=== PATIENT | female | born 1965 | race Caucasian/White ===

== ENCOUNTER → 2017-01-11 | Outpatient (CLI) | payer OTHER ==
[~2017-01-11] MED LIST: BYSTOLIC5 MG PO; IMITREX100 MG PO; LIPITOR40 MG PO; OGEN 0.625MG0.625 MG OR
--- NOTE | 2017-01-11 14:19 | RADIOLOGY REPORT PS360 ---
EXAM: LUMBAR SPINE 5 VIEWS HISTORY: LBP, RT SCIATICA ORDERING PHYSICIAN: Sriram Davis MD PATIENT AGE: 51 years COMPARISON: None FINDINGS: Normal alignment. No fracture or dislocation. No lytic or blastic change. There are facet arthritic changes from L4 to S1 with osteosclerosis of the facets at these levels. The disc spaces are well-preserved. IMPRESSION: Facet arthritic changes at L4-L5 and L5-S1
== END ==
LOC: RAD 12:52
DX: M54.5 Low back pain (principal)